=== PATIENT | female | born 1995 | race Caucasian/White ===

== ENCOUNTER 2020-07-17 14:10 | Outpatient (CLI) | payer SELFPAY ==
--- NOTE | 2020-07-17 14:15 | US_ITS ---
WS: [id number] ULTRASOUND RIGHT BREAST HISTORY: D17.1 - Benign lipomatous neoplasm of skin and subcutaneous tissue of trunk COMPARISON: None available. TECHNIQUE: 2-D and Doppler. Palpable area adjacent to the sternum over the RIGHT chest corresponds to a prominent rib. There is n o soft tissue mass identified. US/US breast RT limited* [id number] IMPRESSION: BI-RADS: 1-Negative FOLLOW-UP: See Report Bilateral ultrasound no abnormality is identified to correspond to the palpable nodule. Palpable area appears to be related to the rib.
== END 2020-07-17 14:11 | disposition home or self-care (01) ==
LOC: RAD 14:14
PROVIDERS: PCP Registered Nurse; Visit Provider Registered Nurse
DX: D17.1 Benign lipomatous neoplasm of skin and subcutaneous tissue of trunk (principal)
CPT/HCPCS: 76642

== ENCOUNTER 2020-12-05 16:11 | Emergency (ER) | payer MEDICAID, SELFPAY ==
[2020-12-05 17:12] VITALS: BP 114/75; PULSE 84; RESP 18; TEMP 37.1; O2SAT 96
[2020-12-05 19:46] LABS: Basophils % 0.1 %; Eosinophils # 0.2 10^3/uL (0.0-0.8); Eosinophils % 2.1 %; Hematocrit 40.4 % (37.0-47.0); Hemoglobin 13.4 g/dL (11.5-15.3); Lymphocytes # 0.7 10^3/uL (0.8-4.8); Lymphocytes % 7.9 %; Mean Corpuscular HGB Conc 33.2 g/dL (30.0-36.0); Mean Corpuscular Volume 84.3 fl (81-99); Mean Platelet Volume 9.4 fL (7.4-10.4); Monocytes # 0.5 10^3/uL (0.2-0.9); Monocytes % 5.4 %; Neutrophils # 7.86 10^3/uL (1.8-7.7); Neutrophils % 84.1 %; Nucleated Red Blood Cells % 0 %; Platelet Count 173 10^3/cmm (130-400); Red Blood Count 4.79 10^6/uL (4.1-5.3); Red Cell Distribution Width 12.8 % (12.1-15.1); White Blood Count 9.4 10^3/uL (4.0-10.0)
[2020-12-05 19:47] LABS: Add Urine Microscopic? NO; Charge for UA Resulting for Rev
[2020-12-05 19:51] LABS: Bilirubin Urine Neg (Negative); Blood Urine Neg (Negative); Glucose Urine UA Norm (Normal); Ketones Urine Negative (Negative); Leukocyte Esterase Urine Negative (Negative); Nitrate Urine Negative (Negative); Protein Urine Neg (Negative); Specific Gravity, Urine 1.005 (1.005-1.030); Urine Appearance Clear (CLEAR); Urine Color Yellow (Yellow); Urobilinogen Urine Neg (Negative); pH Urine 7 (5-7)
[2020-12-05 20:06] LABS: Alanine Aminotransferase 13 U/L (0-33); Albumin Level 4.1 g/dL (3.5-5.2); Alkaline Phosphatase 73 IU/L (35-105); Anion Gap 14.8 (5-19); Aspartate Amino Transferase 15 U/L (0-32); Blood Urea Nitrogen 8 mg/dL (6-20); Calcium 8.8 mg/dL (8.5-10.5); Carbon Dioxide 25 mmol/L (22-29); Chloride 102 mmol/L (98-107); Globulin 2.3 g/dL (1.3-4.6); Glomerular Filtration Rate 152.9 mL/min (90-130); Glucose 72 mg/dL (65-115); Osmolality Calculated 283 mOsm/kg (285-295); Potassium 3.8 mmol/L (3.5-5.1); Sodium 138 mmol/L (136-145); Total Bilirubin 0.2 mg/dL (0.15-1.2); Total Protein 6.4 g/dL (6.6-8.7)
--- NOTE | 2020-12-05 20:15 | W.ED.ABDPA2 ---
HPI - Abdominal Pain General: Chief Complaint: Abdominal Pain Stated Complaint: 19 wks/Blood In Stool/ABD Pain Time Seen by Provider: 12/05/20 20:13 History of Present Illness: HPI narrative: Ms. Lobo is a 25-year-old lady with significant history of current status, G1 estimated 19 weeks who presents to the emergency department due to abdominal pain and blood in stool. Symptom onset was gradual approximately 5 days ago. She describes a tightness across her abdomen without specific areas of worsening. This is mildly crampy in nature but does not have regular cramping. She denies associated vaginal discharge or bleeding. Additionally she has noticed dark red blood in stools. She reports no pain with bowel movements. She does have a history of similar but is not completely been evaluated. She denies associated lightheadedness, dizziness, chest pain, shortness of breath. No known complications with current . No infectious symptoms. No other specific exacerbating, provoking, or alleviating factors Related Data: Date of Last Menstrual Period: 07/20/20 Review of Systems General: Reports: 10 or more systems reviewed and unremarkable except in HPI and below Narrative: CONSTITUTIONAL: denies fever, fatigue, weakness EYES - denies pain, denies loss of vision EARS - denies ear issues. NOSE - denies congestion or rhinorrhea. THROAT - denies sore throat or difficulty swallowing. CARDIOVASCULAR - denies chest pain and palpitations RESPIRATORY - denies shortness of breath and cough GASTROINTESTINAL -see HPI GENITOURINARY - denies dysuria or urinary frequency -no vaginal bleeding or discharge MUSCULOSKELETAL- denies deformity or pain SKIN - denies rashes or new changed skin lesions NEUROLOGIC - denies focal weakness or sensory changes HEMATOLOGIC/LYMPHATIC - denies easy bruising or lymphadenopathy. PFSH ED PFSH: Family History Grandmother Cancer Social History Smoking and tobacco status: never smoked Alcohol intake: never Adopted: No Caregiver/support person: No Lives independently: No service: No Current occupational status: employed Sexually active: Yes Current gender identity: Female Female Reproductive History: Date of last menstrual period: 07/20/20 Physical Exam Narrative: EXAM NARRATIVE: GENERAL/CONSTITUTIONAL - well-appearing. No acute distress. Eyes - PERRL, no conjunctival injection ENMT - Atraumatic external nose and ears. Moist mucous membranes NECK - supple. trachea midline CARDIOVASCULAR - regular rate and rhythm. Peripheral pulses 2+ and equal RESPIRATORY -clear to auscultation bilaterally. No retractions or accessory muscle use. ABDOMEN/GI -gravid. Minimal tenderness to deep palpation. Tenderness is generalized without focality.. Nondistended. No tenderness to percussion or evidence of peritonitis Rectal - exam performed with editor farm journal present. Internal hemorrhoids palpated, brown stool, guaiac positive without gross blood or melena MSK - Extremities without obvious deformity or tenderness to palpation SKIN - Warm, Dry NEURO - alert and appropriately oriented. strength and sensation intact. Moves all extremities equally. PSYCH - Appropriate mood and affect Course ED course: - Patient was seen and evaluated by me at bedside -Vital signs obtained - Initial evaluation notable for no acute distress, nontoxic appearance. Abdominal exam as noted above - Labs notable for stable hemoglobin - heart rate by bedside Doppler 120. - Discussed possible additional work-up and risks given current gravid status, patient is comfortable with going home and following up with primary crossband layer. Based on labs, history, and exam this is appropriate. - Upon serial reexamination was similar - Based on patient history, evaluation, labs, and imaging as interpreted the most likely cause of the patient's condition is unclear though may be related to hemorrhoids - The results of ED evaluation were discussed with the patient including prescriptions and/or symptomatic cares (if applicable) including appropriate and responsible use, followup plan, and return precautions. The patient verbalized understanding and felt safe for discharge. - Patient discharged in satisfactory condition. Vital Signs: Vital signs: Vital Signs Temperature 98.8 F 12/05/20 17:12 Pulse Rate 86 12/05/20 21:56 Respiratory Rate 18 12/05/20 21:56 Blood Pressure 106/62 12/05/20 21:56 Pulse Oximetry 98 12/05/20 21:56 MDM - Abdominal Pain Medical Records: Attestation: I reviewed the patient's medical records. Lab Data: Attestation: I reviewed the patient's lab results. Labs: Lab Results 12/05/20 12/05/20 12/05/20 Range/Units 19:36 19:36 19:36 WBC 9.4 (4.0-10.0) 10^3/ uL RBC 4.79 (4.1-5.3) 10^6/u L Hgb 13.4 (11.5-15.3) g/dL Hct 40.4 (37.0-47.0) % MCV 84.3 (81-99) fl MCH 28.0 (28.0-34.0) pg MCHC 33.2 (30.0-36.0) g/dL RDW 12.8 (12.1-15.1) % Plt Count 173 (130-400) 10^3/c mm MPV 9.4 (7.4-10.4) fL Neut % (Auto) 84.1 % Lymph % (Auto) 7.9 % Placer % (Auto) 5.4 % Eos % (Auto) 2.1 % Baso % (Auto) 0.1 % Neut # (Auto) 7.86 H (1.8-7.7) 10^3/u L Lymph # (Auto) 0.7 L (0.8-4.8) 10^3/u L Placer # (Auto) 0.5 (0.2-0.9) 10^3/u L Eos # (Auto) 0.2 (0.0-0.8) 10^3/u L Baso # (Auto) 0.0 (0.0-0.1) 10^3/u L Nucleated RBC % (a uto) 0 % Nucleated RBCs # 0.0 /100WBC Sodium 138 (136-145) mmol/L Potassium 3.8 (3.5-5.1) mmol/L Chloride 102 (98-107) mmol/L Carbon Dioxide 25 (22-29) mmol/L Anion Gap 14.8 (5-19) BUN 8 (6-20) mg/dL Creatinine 0.5 (0.5-0.9) mg/dL GFR Calculation 152.9 H (90-130) mL/min Glucose 72 (65-115) mg/dL Calculated Osmolal ity 283 L (285-295) mOsm/k g Calcium 8.8 (8.5-10.5) mg/dL Total Bilirubin 0.2 (0.15-1.2) mg/dL AST 15 (0-32) U/L ALT 13 (0-33) U/L Alkaline Phosphata se 73 (35-105) IU/L Total Protein 6.4 L (6.6-8.7) g/dL Albumin 4.1 (3.5-5.2) g/dL Globulin 2.3 (1.3-4.6) g/dL Urine Color Yellow (Yellow) Urine Appearance Clear (CLEAR) Urine pH 7 (5-7) Ur Specific Gravit y 1.005 (1.005-1.030) Urine Protein Neg (Negative) Urine Glucose (UA) Norm (Normal) Urine Ketones Negative (Negative) Urine Blood Neg (Negative) Urine Nitrate Negative (Negative) Urine Bilirubin Neg (Negative) Urine Urobilinogen Neg (Negative) mg/dL Ur Leukocyte Madonna ase Negative (Negative) Discharge Plan Discharge Patient Disposition: Home Clinical Impression: Abdominal pain, Bleeding hemorrhoids, Blood in stool, Condition: Stable Prescriptions: No Action Tums 300 mg (750 mg) Tablet,Chewable 300 mg PO QID PRN (Reason: STOMACH ISSUES) RF: 0 1 tab PO DAILY RF: 0 Discharge Orders: Discharge ED (Routine); Ordered 12/05/20 Ordered By: Akin Hawthorne Referrals: Gonzalez Canales FNP [Primary Care Provider] - Discharge Diet: Usual diet Discharge Activity: Resume usual activity Patient Instructions: Hemorrhoids (ED), Abdominal Pain in (ED) Activity Restrictions/Additional Instructions: Thank you for visiting the emergency department. You were seen and evaluated for abdominal pain and blood in stool. Based on laboratory studies and physical exam as well as vital signs no additional imaging studies are warranted especially given the risk due to . Because of your blood in stool is also somewhat unclear, you were found to have hemorrhoids which can cause the appearance of blood in stool and stool softeners may help with this. Please follow-up with your primary care provider. Please return to the emergency department for vaginal bleeding, increased blood in stool, lightheadedness, dizziness, fast heart rate, chest pain, shortness of breath, or anything else that you are concerned about and feel needs emergency department evaluation. Coding Level of Care Code ED [employer] for Eran Millan
[2020-12-05] MEDS: acetaminophen 325 mg Tablet 650 MG PO (21:33)
[2020-12-05] MEDS: lidocaine 2% viscous 15 ML, aluminum-mag hydrox-simethicon 30 ML, sucralfate oral liq 1 GM PO (21:33)
--- NOTE | 2020-12-05 21:34 | NUR.SHIFT ---
in patient room with Dr Hawthorne for rectal exam patient tolerated well
--- NOTE | 2020-12-05 21:35 | PC.NURSE ---
FHT 120
[2020-12-05 21:56] VITALS: BP 106/62; PULSE 86; RESP 18; O2SAT 98
== END 2020-12-05 21:57 | disposition home or self-care (01) ==
PROVIDERS: Emergency Medicine; Emergency Provider Emergency Medicine; PCP Registered Nurse
DX: O26.892 Other specified pregnancy related conditions, second trimester (principal); O22.42 Hemorrhoids in pregnancy, second trimester; R10.9 Unspecified abdominal pain; K92.1 Melena; Z3A.19 19 weeks gestation of pregnancy
CPT/HCPCS: 80053; 81003; 85025; 99283